=== PATIENT | female | born 1995 | race Two or more races ===

== ENCOUNTER → 2017-04-22 | Outpatient (REF) | payer BC | LOC: M SFHCLERA 17:39 | PROVIDERS: ATTEND Nurse Practitioner Family | DX: M54.5 Low back pain (principal) ==

== ENCOUNTER 2017-08-10 09:52 | Emergency (ER) | payer BC ==
[~2017-08-10] VITALS: Ht 160 cm; Wt 79.5 kg
[2017-08-10] MEDS ORDERED: KETOROLAC 30 MG/ML VIAL (J1885) IV ONE (11:00)
[2017-08-10 11:17] LABS: BASO % 0.3 % (0.0-1.0); EOS # 0.1 10^3/uL (0.0-0.50); EOS % 1.8 % (0.0-3.0); IMMATURE GRANULOCYTE % 0.5 % (0-0); LYMPH # 1.7 10^3/uL (1.5-6.5); MEAN CORPUSCULAR HEMOGLOBIN 30.9 pg (27.0-33.0); MEAN CORPUSCULAR HGB CONC 31.6 g/dl (32.0-36.5); MEAN CORPUSCULAR VOLUME 97.9 fl (80.0-96.0); MONO # 0.4 10^3/uL (0.0-0.8); NEUTROPHILS # 3.8 10^3/uL (1.8-7.7); NEUTROPHILS % 62.4 % (36.0-66.0); PLATELET COUNT, AUTOMATED 283 10^3/uL (150-450); RED CELL DISTRIBUTION WIDTH 13.2 % (11.5-14.5); WHITE BLOOD COUNT 6.2 10^3/uL (4.0-10.0)
[2017-08-10 11:44] LABS: ANION GAP 6 MEQ/L (8-16); BLOOD UREA NITROGEN 11 MG/DL (7-18); CARBON DIOXIDE LEVEL 29 MEQ/L (21-32); CHLORIDE LEVEL 105 MEQ/L (98-107); CREATININE FOR GFR 0.94 MG/DL (0.55-1.02); GLOMERULAR FILTRATION RATE > 60.0 (>60); GLUCOSE, FASTING 88 MG/DL (70-105); POTASSIUM SERUM 3.9 MEQ/L (3.5-5.1); SODIUM LEVEL 140 MEQ/L (136-145)
--- NOTE | 2017-08-10 12:23 | REP ---
REASON FOR EXAM: Pelvic pain. Transvesical imaging only was obtained. The reason for the lack of transvaginal imaging is unknown to me. The uterus measures 6.3 x 3.1 x 4.7 cm. The parenchymal echo pattern is within normal limits. The endometrial echo complex is within normal limits measuring 8 mm in thickness. The right ovary is normal measuring 2.4 x 1.8 x 2.9 cm with an RI of 0.68 and the left ovary is normal measuring 3.3 x 2.6 x 2.4 cm with an RI of 0.66. Urinary bladder measures 8 x 3 x 8 cm. IMPRESSION: Unremarkable pelvic ultrasound exam. Signed by Dorian Healy DO 08/10/2017 02:17 P
[2017-08-10] MEDS ORDERED: BACT800T5 PO (13:02)
[2017-08-10] MEDS ORDERED: TRAM50TA2 PO (13:03)
[2017-08-10 13:14] VITALS: BP 110/64
== END 2017-08-10 13:16 | disposition home or self-care (01) ==
LOC: M ED 09:52
DX: N30.00 Acute cystitis without hematuria (principal); K58.9 Irritable bowel syndrome, unspecified; Z87.891 Personal history of nicotine dependence
CPT/HCPCS: 36415; 76856; 80048; 81001; 81025; 85025; 87086; 93976; 96374; 99284; J1885

== ENCOUNTER → 2017-09-25 | Outpatient (CLI) | payer BC ==
[2017-09-25 15:23] LABS: PROGESTERONE 0.4 NG/ML
[2017-09-25 15:24] LABS: FOLLICLE STIMULATING HORMONE 2.4 mIU/mL; LUTEINIZING HORMONE 0.4 mIU/mL; PROLACTIN 5.2 NG/ML
[2017-09-27 00:11] LABS: TESTOSTERONE FREE (DIRECT) 0.9 pg/mL (0.0-4.2)
== END ==
LOC: M SMT 09:55
DX: N93.8 Other specified abnormal uterine and vaginal bleeding (principal)
CPT/HCPCS: 83001

== ENCOUNTER → 2018-08-07 | Outpatient (REF) | payer BC | LOC: M SFHCLERA 10:59 | DX: R68.89 Other general symptoms and signs (principal); R11.2 Nausea with vomiting, unspecified | CPT/HCPCS: 87086 ==

== ENCOUNTER 2018-08-12 20:49 | Emergency (ER) | payer OTHER, BC | END 2018-08-12 23:15 | disposition home or self-care (01) | LOC: M ED 20:49 | DX: S16.1XXA Strain of muscle, fascia and tendon at neck level, initial encounter (principal); S06.0X0A Concussion without loss of consciousness, initial encounter; V49.49XA Driver injured in collision with other motor vehicles in traffic accident, initial encounter; Y92.410 Unspecified street and highway as the place of occurrence of the external cause | CPT/HCPCS: 99283 ==

== ENCOUNTER 2018-08-26 18:17 | Emergency (ER) | payer OTHER ==
[~2018-08-26] VITALS: Ht 160 cm; Wt 84.1 kg
[~2018-08-26 18:17] MED LIST: BACT800T5 PO; NAPR-49 PO; ROBA500T PO; TRAM50TA2 PO
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
[2018-08-26 21:14] VITALS: BP 134/90
== END 2018-08-26 21:15 | disposition home or self-care (01) ==
LOC: M ED 18:17
DX: F07.81 Postconcussional syndrome (principal); K58.9 Irritable bowel syndrome, unspecified; F33.9 Major depressive disorder, recurrent, unspecified; F41.9 Anxiety disorder, unspecified; Z91.018 Allergy to other foods; Z87.891 Personal history of nicotine dependence

== ENCOUNTER 2019-05-07 06:50 | Day surgery (SDC) | payer BC ==
[~2019-05-07] VITALS: Ht 160 cm; Wt 81.6 kg
[~2019-05-07 06:50] MED LIST changes: +BACL10TA2 PO; +MULTCAP PO; -NAPR-49 PO; +NAPR-837 PO; +NS 1,000 ML IV ONE
[2019-05-07] MEDS ORDERED: LIDOCAINE 2% INJ 100 MG/5 ML SDV (FOR ANES.) As Ordered ONE ×2 (07:03→07:08)
[2019-05-07] MEDS ORDERED: PROPOFOL 200 MG/20 ML VIAL As Ordered ONE ×2 (07:03→07:08)
--- NOTE | 2019-05-07 07:51 | ROOR ---
Patient Name: Sheela Hassan Procedure Date: 05/07/2019 7:31 AM Date of : 1995 Age: 23 Room: [facility] Gender: Female Note Status: Finalized Procedure: Colonoscopy Indications: Hematochezia, Irritable bowel syndrome with constipation Providers: Colby IZAGUIRRE MD Referring MD: Con Garnica Requesting Provider: Medicines: Monitored Anesthesia Care Complications: No immediate complications. Procedure: Pre-Anesthesia Assessment: - The heart rate, respiratory rate, oxygen saturations, blood pressure, adequacy of pulmonary ventilation, and response to care were monitored throughout the procedure. The Colonoscope was introduced through the anus and advanced to 15 cm into the ileum. The colonoscopy was performed without difficulty. The patient tolerated the procedure well. The quality of the bowel preparation was good. Findings: The perianal and digital rectal examinations were normal. Small Internal Hemorrhoids. The entire examined colon appeared normal on direct and retroflexion views. The terminal ileum appeared normal. Impression: - Small Internal Hemorrhoids. - The entire examined colon is normal on direct and retroflexion views. - The examined portion of the ileum was normal. - No specimens collected. Recommendation: - Continue present medications. - Use can continue to use lactulose 2-4 tablespoons two to three times a day. OR you can use Miralax 2 capfuls once a day. increase to twice a day if necessary. OR you can retry Linzess 290 mg daily. (i will send script to your pharmacy) Colby Izaguirre MD Colby IZAGUIRRE MD 05/07/2019 7:50:57 AM Electronically signed by Colby IZAGUIRRE MD Number of Addenda: 0 Note Initiated On: 05/07/2019 7:31 AM Estimated Blood Loss: Estimated blood loss: none.
[2019-05-07 08:17] VITALS: BP 118/71
== END 2019-05-07 08:17 | disposition home or self-care (01) ==
LOC: M OPP 06:50
PROVIDERS: ATTEND Internal Medicine Gastroenterology
DX: K92.1 Melena (principal); K58.1 Irritable bowel syndrome with constipation; K64.8 Other hemorrhoids; Z79.891 Long term (current) use of opiate analgesic; Z91.011 Allergy to milk products; Z91.012 Allergy to eggs; Z91.018 Allergy to other foods

== ENCOUNTER → 2020-01-15 | Outpatient (CLI) | payer BC ==
[~2020-01-15] MED LIST changes: +MAGN200T PO; +NATU1TAB5 PO; -NS 1,000 ML IV ONE
== END ==
LOC: M LABSMTC 08:59
PROVIDERS: ATTEND Anesthesiology
DX: Z01.818 Encounter for other preprocedural examination (principal); Z11.59 Encounter for screening for other viral diseases
CPT/HCPCS: C9803; U0003

== ENCOUNTER 2020-04-04 08:30 | Day surgery (SDC) | payer BC ==
[2020-04-04] MEDS ORDERED: SCOPOLAMINE 1MG TRANSDERMAL PATCH As Ordered ONE (09:16)
[2020-04-04] MEDS ORDERED: ceFAZolin 2 GM/D5W 50 ML IV BAG (J0690 PER 500MG) As Ordered ONE (09:53)
[2020-04-04] MEDS ORDERED: BUPIVACAINE HCL 0.5% 30 ML VIAL As Ordered ONE (10:11)
[2020-04-04] MEDS ORDERED: fentaNYL 100 MCG/2 ML INJECTION (J3010) As Ordered ONE ×2 (10:20→12:15)
[2020-04-04] MEDS ORDERED: propofoL 200 MG/20 ML VIAL As Ordered ONE ×2 (10:20→10:21)
[2020-04-04] MEDS ORDERED: LIDOCAINE 2% 100MG/5ML SDV (FOR ANES.) As Ordered ONE (10:20)
[2020-04-04] MEDS ORDERED: MIDAZOLAM INJ 2MG/2ML VIAL (J2250 PER 1MG) As Ordered ONE (10:20)
[2020-04-04] MEDS ORDERED: ONDANSETRON 4MG/2ML VIAL As Ordered ONE ×2 (10:20→12:15)
[2020-04-04] MEDS ORDERED: dexameTHASONE 4 MG/ML 1ML VIAL (J1100 PER 1MG) As Ordered ONE (10:20)
[2020-04-04] MEDS ORDERED: KETOROLAC 60MG 2ML VIAL As Ordered ONE (10:21)
[2020-04-04] MEDS ORDERED: METOCLOPRAMIDE INJ 10MG/2ML VIAL (J2765 PER 1) As Ordered ONE (10:21)
[2020-04-04] MEDS ORDERED: ACETAMINOPHEN 1000MG 100ML IV BTL (OFIRMEV) (J0131 PER 10MG) As Ordered ONE (10:21)
[2020-04-04] MEDS ORDERED: oxyCODONE 5MG TAB As Ordered ONE ×2 (12:15→12:45)
--- NOTE | 2020-06-06 12:40 | RO ---
DATE OF OPERATION: 04/04/2020 PREOPERATIVE DIAGNOSES: 1. Right knee medial meniscus root tear. 2. Right knee medial parameniscal cyst. POSTOPERATIVE DIAGNOSES: 1. Right knee medial meniscus capsule-junction tear. 2. Right knee chondromalacia. PROCEDURES: 1. Right knee arthroscopy with medial meniscus repair, chondroplasty. 2. Right knee arthroscopic microfracture of the intracondylar notch. SURGEON: Gennaro Mg M.D. [employer]ER: Jaquan Wolf PA-C ANESTHESIA: General. IV FLUIDS: Lactated Ringer's. ESTIMATED BLOOD LOSS: 10 mL. IMPLANTS: [employer] FAST-FIX 360 reverse curved times 2. CLOSURE: Nylon. DESCRIPTION OF PROCEDURE: Patient was identified in the preoperative holding area. The right leg was marked. She was brought to the operating room and placed supine on a well-padded OR table. General anesthesia was induced. Examination under anesthesia revealed range of motion from zero to 140 degrees; stable to varus and valgus stress, grade 1A Andi and no patellar instability. A well-padded tourniquet applied to the right thigh. The right leg was then prepped and draped in a normal sterile fashion. Prior to incision, timeout was performed per hospital protocol. She received appropriate IV antibiotics within one hour of incision. Jaquan Wolf was present for the entire procedure and participated in all essential portions of the procedure. This included patient positioning and draping, holding the arthroscopic, assisting with deploying and meniscal repair device and holding the scope and applying valgus load to the knee to open the medial compartment. Following the timeout, the right leg was exsanguinated with an Esmarch bandage and the tourniquet inflated. The right knee was insufflated with lactated Ringer's. A standard anterolateral portal was localized with a spinal needle and incision made with an 11 blade. A 30-degree arthroscope was then introduced into the joint and a diagnostic arthroscopy was carried out. Inspection of the patellofemoral joint revealed grade 1 chondromalacia of the far medial patella. There were some very small loose bodies that appeared to be articular cartilage in the knee. I estimate them to be less than a millimeter. The trochlea was in good condition. No loose bodies in the gutters. The ACL was unremarkable and intact. The medial compartment was then entered where there was no obvious medial meniscus tear. I then made a medial portal under direct visualization to avoid the eminence of the medial meniscus. On probing of the posterior horn of the medial meniscus, there appeared to be an unstable tear at the capsule and meniscal junction. No actual tearing within the posterior horn of the meniscus identified. I was able to place the arthroscope between the posterior cruciate ligament (PCL) and the medial tibial spine to get a better view at the root of the medial meniscus and there appeared to be some partial tearing at the root but most of the fibers appeared to be intact. Chondroplasty was performed to the medial femoral condyle. Initial plan was for a root repair. The Scorpion was inserted into the knee; however, the knee was quite tight and I was unable to get it passed. At this point, I reevaluated the medial meniscus and although there did appear to be some tearing at the root, the majority of the root appeared intact. I did not appreciate a parameniscal cyst but this was compared to the MRI of her knee which did clearly show a parameniscal cyst at the root. So, the suction was then turned on and the posterior horn of the medial meniscus displaced centrally into the knee. Based on that fact and that I was able to displace the posterior horn with the probe, I felt that this warranted a repair. So, the [employer] FAST-FIX reverse curve 360 implant was opened. The slotted cannula was then introduced into the medial portal to protect the articular cartilage and then I passed the device starting just off the root. The device was passed in a modified vertical mattress fashion. The suture was then tensioned and the self-tying knot nicely reduced the meniscus back to the capsule. The suture was cut with the disposable cutter. These steps were then repeated with the second device further medial and again placing in an oblique modified vertical mattress fashion. These were placed through the inferior leaflet of the posterior horn and this also nicely reduced the meniscus back to the capsule. The suture was cut. Now on probing of the meniscus, there was no displacement and the suction was turned on again and no displacement. Leg was brought into the figure-four position where there was no tearing of the lateral meniscus, no significant chondromalacia. I then proceeded with the microfracture of the intracondylar notch to improve the healing due to this being an isolated meniscus repair. So, the microfracture awl was used to make six holes just off the intraarticular and the intracondylar notch; 3 medial, 3 lateral. Tourniquet was let down and bone marrow elements and blood was noted to egress from those holes. The knee was then irrigated and drained. Portals closed with nylon suture. Bulky sterile dressing was then applied. She was then placed into her hinged knee brace locked in extension. She was extubated and transferred to the PACU in stable condition. HASEEB
== END 2020-04-04 13:56 | disposition home or self-care (01) ==
LOC: M SDC 08:30
PROVIDERS: ATTEND Orthopaedic Surgery
DX: S83.241A Other tear of medial meniscus, current injury, right knee, initial encounter (principal); M94.261 Chondromalacia, right knee; X58.XXXA Exposure to other specified factors, initial encounter; Y92.89 Other specified places as the place of occurrence of the external cause; Y93.9 Activity, unspecified; Y99.9 Unspecified external cause status; F41.9 Anxiety disorder, unspecified; J45.909 Unspecified asthma, uncomplicated; K58.8 Other irritable bowel syndrome; Z87.891 Personal history of nicotine dependence; Z91.012 Allergy to eggs; Z91.018 Allergy to other foods; Z79.899 Other long term (current) drug therapy; F32.9 Major depressive disorder, single episode, unspecified
CPT/HCPCS: 29879; 29882; C1713; J0131; J0690; J1100; J1885; J2250; J2405; J2765; J3010

== ENCOUNTER → 2020-04-14 | Outpatient (CLI) | payer OTHER | LOC: M RAD 15:26 | PROVIDERS: ATTEND Orthopaedic Surgery | DX: M79.661 Pain in right lower leg (principal) ==